=== PATIENT | male | born 1955 | race African-American/Black ===

== ENCOUNTER → 2017-02-25 | Day surgery (SDC) | payer OTHER ==
[~2017-02-25] MED LIST: ACTIVE-Q200 MG PO; AMITRYPTYLINE; ANTIVERT PO; ASPIRIN81 M1 PO; ASPIRIN81 M2 PO; BICALUTAMIDE50 MG PO; CALTRATE 600+D PO; COMPAZINE10 M2 PO; COREG PO; COREG3.125 MG PO; COUMADIN PO; COUMADIN5 MG PO; DIAZEPAM PO; DIVALPROEX SOD500 M1 PO; FISH OIL 1,0001 CAP PO; FISH OIL 1,0001 EAC1 PO; FISH OIL300 MG PO; FLOMAX0.4 M1 PO; FOLIC ACID PO; FUROSEMIDE40 MG PO; HYDROCODON-ACE1 EAC4 PO; HYDROCODON-ACE1 EAC5 PO; KCL PO; KLOR-CON PO; LASIX PO; LISINOPRIL PO; LORAZEPAM1 MG PO; LORTAB 10/500 T1 TAB; MEGESTROL ACETA20 MG PO; MULTIVITAMIN1 UDCAP PO; NEURONTIN300 MG PO; OMEPRAZOLE40 MG PO; ONDANSETRON ODT8 MG PO; OXAZEPAM10 MG PO; PACERONE PO; PREDNISOLONE5 MG PO; PRINIVIL5 MG PO; PROTONIX PO; RESPERDAL; SEROQUEL; SEROQUEL PO; TURKEY TAIL PO; VIT B-12 PO; VITAMIN B-12500 MCG PO; VITAMIN B12-FO1 EACH PO; VITAMIN C250 MG PO; VITAMIN E400 UNI4 PO
--- NOTE | ~2017-02-25 | OR ---
Unit #: [id number] #: [id number] Patient: LEAH NASSAR [id number] [address] [place], [place] [address] [id number] O MR#: [id number] NAME: LEAH NASSAR ROOM: Date of Procedure: 02/25/2017 Admission Date: 02/25/2017 Surgeon: Blane Rodríguez M.D. : 1955 Attending Physician: Blane Rodríguez M.D. Primary Care Physician: Carmen Becerril M.D. OPERATIVE REPORT PREOPERATIVE DIAGNOSES Neck pain, cervical radiculopathy, cervical herniated nucleus pulposus. POSTOPERATIVE DIAGNOSES Neck pain, cervical radiculopathy, cervical herniated nucleus pulposus. PROCEDURE PERFORMED Cervical epidural steroid injection with intravenous sedation and fluoroscopic guidance for needle localization. INDICATIONS FOR PROCEDURE The patient is a 61-year-old male with return of neck and left upper extremity pain associated with known left C5-C6 disk herniation. He treated medically and p.r.n. epidural steroid injections. Last injections were completed in 07/2015. He had 80% improvement of his symptom complex for 8 to 10 months after a series of 2 injections. Pain is fairly significant over the last 3 months. We are trying to get approval for repeat injections. Based on history, pathology, and symptomatology, we are going to proceed with a repeat injection today and then followup injection in about 2 weeks time if needed. DESCRIPTION OF PROCEDURE The patient was placed in the seated position. Standard monitors were applied. 4 mg of Versed were given for sedation and anxiolysis, which were adequate. Vital signs remained stable. Sterile prep and drape then of the cervical area was performed. The skin at the C5-C6 level was localized with 1% lidocaine. An 18-gauge MyNewPlacetead needle was then advanced via hanging drop technique and fluoroscopic guidance in toward the epidural space. After confirming proper positioning with fluoroscopy and radiographic contrast, 80 mg Depo-Medrol and 2 mL of 0.25% bupivacaine were deposited. There was some reproduction of pain during the injection process, which quickly abated. He tolerated the procedure otherwise well and was discharged to the recovery room in stable condition. Dictated by... Blane Rodríguez M.D. LHP/modl Unit #: [id number] #: [id number] Patient: LEAH NASSAR TD: 02/25/2017 16:34 JOB #: [id number] OPERATIVE REPORT Page 1 of 1 X Blane Rodríguez MD X PROCEDURE OPERATIVE NOTE
== END | disposition home or self-care (01) ==
LOC: CCSC 06:41
DX: M50.122 Cervical disc disorder at C5-C6 level with radiculopathy (principal); Z79.82 Long term (current) use of aspirin; Z79.899 Other long term (current) drug therapy
CPT/HCPCS: J1040; J2250

== ENCOUNTER → 2017-03-04 | Day surgery (SDC) | payer OTHER ==
--- NOTE | ~2017-03-04 | OR ---
Unit #: [id number] #: [id number] Patient: LEAH NASSAR [id number] [address] [place], [place] [address] [id number] O MR#: [id number] NAME: LEAH NASSAR ROOM: Date of Procedure: 03/04/2017 Admission Date: 03/04/2017 Surgeon: Blane Rodríguez M.D. : 1955 Attending Physician: Blane Rodríguez M.D. Referring Physician: Blane Rodríguez M.D. Primary Care Physician: Carmen Becerril M.D. OPERATIVE REPORT PREOPERATIVE DIAGNOSES Neck pain, cervical radiculopathy, cervical disk herniation. POSTOPERATIVE DIAGNOSES Neck pain, cervical radiculopathy, cervical disk herniation. PROCEDURE PERFORMED Cervical epidural steroid injection with intravenous sedation and fluoroscopic guidance for needle localization. INDICATIONS FOR PROCEDURE The patient is a 61-year-old male with return of neck and left upper extremity pain and previously mentioned diagnosis. He is now one neck surgery. He has done well with p.r.n. epidural steroid injections in conjunction with medication management. Recent injection done a week ago, which resulted in 30% to 40% settling of symptom complex and which seems do better with the second, at times even a third injection. At this time, we are going to proceed with a second injection based on his history. In the past, he had done well with almost 80% control of his pain for about 10 months. DESCRIPTION OF PROCEDURE The patient was placed in a seated position. Standard monitors were applied. 4 mg of Versed were given for sedation and anxiolysis, which were adequate. Vital signs remained stable. Sterile prep and drape then of the cervical area was performed. The skin at the C5 level was localized with 1% lidocaine. An 18-gauge Hotelbar needle was then advanced via loss of resistance technique and fluoroscopic guidance in toward the epidural space. After confirming proper positioning with fluoroscopy and radiographic contrast, 80 mg of Depo-Medrol and 2 mL of 0.25% bupivacaine were deposited. The patient tolerated the procedure otherwise well and was discharged to the recovery room in stable condition. Dictated by... Hever Samayoa/dyan TD: 03/04/2017 15:09 JOB #: [id number] CC: [facility] Unit #: [id number] #: [id number] Patient: LEAH NASSAR TERRELL OPERATIVE REPORT Page 1 of 1 X Blane Rodríguez MD X PROCEDURE OPERATIVE NOTE
== END | disposition home or self-care (01) ==
LOC: CCSC 06:42
DX: M50.10 Cervical disc disorder with radiculopathy, unspecified cervical region (principal); I10 Essential (primary) hypertension; F41.9 Anxiety disorder, unspecified; F32.9 Major depressive disorder, single episode, unspecified; Z79.82 Long term (current) use of aspirin; Z79.899 Other long term (current) drug therapy
CPT/HCPCS: J1040; J2250